=== PATIENT | male | born 1965 | race Caucasian/White ===

== ENCOUNTER 2019-05-20 19:25 | Emergency (ER) | payer MEDICAID ==
[~2019-05-20] VITALS: Ht 182.9 cm; Wt 140.0 kg
[2019-05-20 22:34] VITALS: BP 146/80
== END 2019-05-20 22:52 | disposition home or self-care (01) ==
LOC: ED 22:41
DX: R10.84 Generalized abdominal pain (principal); R11.2 Nausea with vomiting, unspecified; R05 Cough; R07.89 Other chest pain; J44.9 Chronic obstructive pulmonary disease, unspecified; G89.29 Other chronic pain; I25.10 Atherosclerotic heart disease of native coronary artery without angina pectoris; I10 Essential (primary) hypertension; E11.9 Type 2 diabetes mellitus without complications; Z90.89 Acquired absence of other organs; Z90.49 Acquired absence of other specified parts of digestive tract
CPT/HCPCS: 71045; 80053; 82962; 83690; 83880; 84484; 85025; 93005; 96374; 96375; 99284; J2405; J3490

== ENCOUNTER 2019-09-10 16:50 | Inpatient (IN) | payer MEDICAID ==
[~2019-09-10] VITALS: Ht 182.9 cm; Wt 139.0 kg
[~2019-09-10 16:50] MED LIST: METF500T17 PO
[2019-09-10] MEDS ORDERED: SODIUM CHLORIDE FLUSH 10ML SYR IVF ONE (17:30)
[2019-09-10] MEDS ORDERED: SODIUM CHLORIDE 0.9% 1,000ML IVBOLUS ONE (17:30)
[2019-09-10 17:58] LABS: MEAN CORPUSCULAR HEMOGLOBIN 31.8 pg (27.5-34.5); MEAN CORPUSCULAR HGB CONC 33.9 g/dL (33.2-36.2); MEAN CORPUSCULAR VOLUME 93.8 fL (81-97); PLATELET COUNT 243 x10^3/uL (130-400); RED BLOOD COUNT 4.88 x10^6/uL (4.38-5.82); RED CELL DISTRIBUTION WIDTH 13.5 % (9.4-14.8)
--- NOTE | 2019-09-10 18:00 | NUR ---
PT ON ALL ROOM MONITORING DEVICES, WARM BLANKET PROVIDED, CALL LIGHT WITHIN REACH. IV PLACED, LABS DRAWN W/START INCLUDING BC X 1. PT WITH MULTIPLE SX, SOME THAT ARE CHRONIC. PROD COUGH-BROWN SPUTUM, GENERALIZED EDEMA, FREQUENT URINATION. PT STATES 30 MINUTES BILLING COORDINATOR, "I JUST DON'T FEEL RIGHT, MY BLOOD SUGAR IS HIGH". SOCIAL-PT HOMELESS, LIVING IN CAR FOR "MONTHS". STATES HE RELOCATED HERE SEVERAL MONTHS AGO BUT WAS LIVING IN CAR IN [place].
[2019-09-10 18:10] LABS: ALANINE AMINOTRANSFERASE 65 U/L (12-78); ALBUMIN 3.8 g/dL (3.4-5.0); ANION GAP 5 mmol/L (5-15); CALCIUM 8.7 mg/dL (8.5-10.1); CHLORIDE 107 mmol/L (98-107); CREATININE 1.46 mg/dL (0.7-1.3)
[2019-09-10 18:14] LABS: ALKALINE PHOSPHATASE 77 U/L (45-117); BILIRUBIN,TOTAL 0.4 mg/dL (0.2-1.0); TOTAL PROTEIN 7.5 g/dL (6.4-8.2)
[2019-09-10 18:16] LABS: MD YES
[2019-09-10 18:18] LABS: BASOS#(MANUAL) 0.08 x10^3/uL (0-0.1); BASOS% (MANUAL) 1 % (0-1); EOS#(MANUAL) 0.08 x10^3/uL (0.0-0.4); EOS% (MANUAL) 1 % (1-7); LYMPH#(MANUAL) 2.37 x10^3/uL (1-3.4); LYMPHS% (MANUAL) 30 % (22-44); MONOS#(MANUAL) 0.32 x10^3/uL (0.3-2.7); MONOS% (MANUAL) 4 % (2-9); SEG#(MANUAL) 5.06 x10^3/uL (1.8-6.8); SEGS% (MANUAL) 64 % (42-75)
[2019-09-10 18:19] LABS: <PLATELET ESTIMATE> ADEQUATE; <PLT MORPHOLOGY> NORMAL PLT MORPH; <RBC MORPHOLOGY> NORMAL
[2019-09-10 18:23] LABS: TROPONIN I < 0.015 ng/mL (0.000-0.045)
[2019-09-10 18:55] LABS: ACETONE, SERUM Negative (Negative)
[2019-09-10 19:58] VITALS: BP 146/73
[2019-09-10] MEDS ORDERED: ONDANSETRON 4 MG TABLET PO PRN (21:00)
[2019-09-10] MEDS ORDERED: ENALAPRILAT 1.25 MG/ML, 2ML IV PRN (21:00)
[2019-09-10] MEDS ORDERED: DOCUSATE 100 MG CAPSULE PO PRN (21:00)
[2019-09-10] MEDS ORDERED: ALBUTEROL/IPRATROPIUM 2.5MG/0.5MG, 3 ML NPPB PRN (21:30)
[2019-09-10] MEDS: NICOTINE 14MG/24 HR PATCH.TD24 TD SCH (21:35)
[2019-09-10] MEDS: ATORVASTATIN 80 MG TABLET PO SCH (21:35)
[2019-09-10] MEDS: HEPARIN 5,000 UNITS/ML, 1ML SQ SCH (21:35)
[2019-09-10 22:30] VITALS: BP_SYST 152; BP_SYST 155; BP_DIAS 83; BP_DIAS 96
[2019-09-10 23:03] VITALS: BP 143/86
[2019-09-10 23:10] LABS: MICROSCOPIC NOT IND
[2019-09-10 23:18] LABS: CULTURE INDICATED? NO
[2019-09-10 23:21] LABS: AMPHETAMINE SCREEN, URINE Positive (Negative); BARBITURATE SCREEN, URINE Negative (Negative); BENZODIAZEPINE SCREEN, URINE Negative (Negative); CANNABINOID SCREEN, URINE Negative (Negative); COCAINE SCREEN, URINE Negative (Negative); METHADONE SCREEN, URINE Negative (Negative); OPIATE SCREEN, URINE Negative (Negative)
[2019-09-11] VITALS (11 sets, daily range): BP systolic 138–166; BP diastolic 80–103
[2019-09-11 00:55] LABS: TROPONIN I < 0.015 ng/mL (0.000-0.045)
[2019-09-11] MEDS: HEPARIN 5,000 UNITS/ML, 1ML SQ SCH ×3 (05:50→21:19)
[2019-09-11] MEDS: ASPIRIN 81 MG TABLET CHEW PO/NG SCH (08:09)
[2019-09-11 09:51] LABS: BASOPHILS # (AUTO) 0.04 x10^3/uL (0-0.1); BASOPHILS % (AUTO) 1 % (0-1); EOSINOPHILS % (AUTO) 1 % (1-7); LYMPHOCYTES % (AUTO) 29 % (22-44); MD NO; MEAN CORPUSCULAR HGB CONC 33.5 g/dL (33.2-36.2); MEAN CORPUSCULAR VOLUME 92.7 fL (81-97); MEAN PLATELET VOLUME 8.8 fL (7.4-10.4); MONOCYTES # (AUTO) 0.49 x10^3/uL (0.2-0.8); MONOCYTES % (AUTO) 6 % (2-9); NEUTROPHILS # (AUTO) 4.84 x10^3/uL (1.8-6.8); NEUTROPHILS % (AUTO) 63 % (42-75); PLATELET COUNT 216 x10^3/uL (130-400); RED BLOOD COUNT 4.86 x10^6/uL (4.38-5.82); RED CELL DISTRIBUTION WIDTH 13.4 % (9.4-14.8)
[2019-09-11 10:08] LABS: ANION GAP 9 mmol/L (5-15); CALCIUM 8.6 mg/dL (8.5-10.1); CHLORIDE 106 mmol/L (98-107)
[2019-09-11 10:13] LABS: CHOLESTEROL, TOTAL 155 mg/dL (140-239); CREATININE 1.24 mg/dL (0.7-1.3); HDL CHOL % 25 % (26-37); HDL CHOLESTEROL (DIRECT) 39 mg/dL (40-60); LDL CHOLESTEROL,CALCULATED 85 mg/dL (54-169); LDL/HDL RATIO 2.2 (0.5-3.0); TRIGLYCERIDES 157 mg/dL (50-200); TROPONIN I < 0.015 ng/mL (0.000-0.045); VLDL CHOLESTEROL 31 mg/dL (0-25)
[2019-09-11] MEDS ORDERED: OMNIPAQUE 350 MG/ML, 100ML BOTTLE ONE (12:41)
[2019-09-11] MEDS ORDERED: GLUCAGON 1 MG IM PRN (19:00)
[2019-09-11] MEDS ORDERED: DEXTROSE 50%, 50ML SYRINGE IVPush PRN (19:00)
[2019-09-11] MEDS ORDERED: DEXTROSE 4 GM TAB.CHEW PO PRN (19:00)
[2019-09-11] MEDS: ATORVASTATIN 80 MG TABLET PO SCH (21:19)
[2019-09-11] MEDS: SODIUM CHLORIDE FLUSH 10ML SYR IVF SCH (21:19)
[2019-09-11] MEDS: INSULIN LISPRO 100 UNITS/ML, PEN SQ-INSULIN SCH (21:19)
[2019-09-11] MEDS: NICOTINE 14MG/24 HR PATCH.TD24 TD SCH (21:20)
[2019-09-11] MEDS: ACETAMINOPHEN 650 MG/20.3 ML UDC PO PRN (21:25)
[2019-09-12] VITALS: BP 155/84
[2019-09-12 02:00] VITALS: BP 119/84
[2019-09-12] MEDS: HEPARIN 5,000 UNITS/ML, 1ML SQ SCH (05:52)
[2019-09-12 07:06] VITALS: BP 150/81
[2019-09-12] MEDS: ACETAMINOPHEN 650 MG/20.3 ML UDC PO PRN (08:03)
[2019-09-12] MEDS: ASPIRIN 81 MG TABLET CHEW PO/NG SCH (08:03)
[2019-09-12] MEDS: SODIUM CHLORIDE FLUSH 10ML SYR IVF SCH (09:00)
[2019-09-12] MEDS: INSULIN LISPRO 100 UNITS/ML, PEN SQ-INSULIN SCH ×2 (09:51→09:52)
== END 2019-09-12 12:33 | disposition left against medical advice (07) | DRG 469 ==
LOC: ED 18:08 → EDIP 18:25 → 4EST 19:40
PROVIDERS: ADMIT Internal Medicine; ATTEND Family Medicine
DX: N17.0 Acute kidney failure with tubular necrosis (principal); G93.41 Metabolic encephalopathy; E11.40 Type 2 diabetes mellitus with diabetic neuropathy, unspecified; I11.0 Hypertensive heart disease with heart failure; I50.32 Chronic diastolic (congestive) heart failure; E66.2 Morbid (severe) obesity with alveolar hypoventilation; J44.1 Chronic obstructive pulmonary disease with (acute) exacerbation; Z68.42 Body mass index [BMI] 45.0-49.9, adult; F15.10 Other stimulant abuse, uncomplicated; F17.210 Nicotine dependence, cigarettes, uncomplicated; R00.0 Tachycardia, unspecified; G89.29 Other chronic pain; R07.9 Chest pain, unspecified; I25.10 Atherosclerotic heart disease of native coronary artery without angina pectoris; Z53.29 Procedure and treatment not carried out because of patient's decision for other reasons; I25.2 Old myocardial infarction; Z59.0 Homelessness; Z82.49 Family history of ischemic heart disease and other diseases of the circulatory system; Z83.3 Family history of diabetes mellitus; Z95.5 Presence of coronary angioplasty implant and graft
CPT/HCPCS: 36415; 70450; 70551; 71046; 71260; 80048; 80053; 80061; 80307; 81003; 82010; 82140; 82962; 83735; 83880; 84443; 84484; 85025; 85379; 93005; 93306; 93880; G0378; J1644; Q9967; 92523-GN; J1815; J7030

== ENCOUNTER 2019-09-15 13:05 | Emergency (ER) ==
[~2019-09-15] VITALS: Ht 182.9 cm; Wt 136.0 kg
[2019-09-15 13:14] VITALS: BP 154/95
--- NOTE | 2019-09-15 13:26 | NUR ---
pt to rr. ua cup provided.
--- NOTE | 2019-09-15 13:33 | NUR ---
pt refusing to put on gown or monitoring equipment and refusing to sit in gurney. pt states, "i just gotta get my sugar down. i don't want anything else. i just gotta go get my mom. she's coming into town today." Dr. Munson to bs fro assessment at this time.
--- NOTE | 2019-09-15 13:38 | NUR ---
pt verbally aggressive toward md, rn and scribe. pt stating, "just give me a shot of insulin or i'm just gonna fucking go somewhere else and get it." pt educated that labs will be needed prior to medications and that will take at least 1 hour. pt stating that he just needs to leave to see his mom. pt leaving ama. no ama form signed.
== END 2019-09-15 13:43 | disposition left against medical advice (07) ==
LOC: ED 13:35
DX: E11.65 Type 2 diabetes mellitus with hyperglycemia (principal); E11.40 Type 2 diabetes mellitus with diabetic neuropathy, unspecified; I10 Essential (primary) hypertension; J44.9 Chronic obstructive pulmonary disease, unspecified; Z90.49 Acquired absence of other specified parts of digestive tract
CPT/HCPCS: 99281

== ENCOUNTER 2020-04-05 11:11 | Emergency (ER) | payer MEDICAID ==
[~2020-04-05] VITALS: Ht 182.9 cm; Wt 140.0 kg
[2020-04-05] MEDS ORDERED: HYDROcodone/APAP 5/325 TABLET ONE (11:39)
--- NOTE | 2020-04-05 11:50 | NUR ---
PT CAME IN CO OF LEFT KNEE WEAKNESS AND PAIN. PT DENIES TRAUMA. PT STATES HE HAS ARTHRITIS IN KNEE. PT ALSO STATES HE HAS BEEN SLEEPING IN HIS CAR AND IS CRAMPED UP. MD IS BEDSIDE FOR ASSESSMENT. PT MEDICATED PER MAR AND CONNECTED TO MONITORING EQUIPMENT.
[2020-04-05 11:52] LABS: BASOPHILS # (AUTO) 0.03 x10^3/uL (0-0.1); BASOPHILS % (AUTO) 0 % (0-1); EOSINOPHILS # (AUTO) 0.13 x10^3/uL (0-0.4); EOSINOPHILS % (AUTO) 2 % (1-7); LYMPHOCYTES # (AUTO) 2.49 x10^3/uL (1-3.4); LYMPHOCYTES % (AUTO) 38 % (22-44); MD NO; MEAN CORPUSCULAR HEMOGLOBIN 30.7 pg (27.5-34.5); MEAN CORPUSCULAR HGB CONC 33.3 g/dL (33.2-36.2); MEAN CORPUSCULAR VOLUME 92.3 fL (81-97); MONOCYTES # (AUTO) 0.45 x10^3/uL (0.2-0.8); MONOCYTES % (AUTO) 7 % (2-9); NEUTROPHILS # (AUTO) 3.53 x10^3/uL (1.8-6.8); NEUTROPHILS % (AUTO) 53 % (42-75); PLATELET COUNT 251 x10^3/uL (130-400); RED BLOOD COUNT 4.75 x10^6/uL (4.38-5.82); RED CELL DISTRIBUTION WIDTH 13.5 % (9.4-14.8)
[2020-04-05 11:59] LABS: ALBUMIN 3.7 g/dL (3.4-5.0); ANION GAP 9 mmol/L (5-15); CALCIUM 8.9 mg/dL (8.5-10.1); CHLORIDE 106 mmol/L (98-107); CREATININE 1.36 mg/dL (0.7-1.3); HCT (SEDRATE) 43.9 % (39.2-51.8)
[2020-04-05] MEDS ORDERED: HYDROcodone/APAP 5/325 TABLET PO ONE (12:00)
--- NOTE | 2020-04-05 12:45 | NUR ---
PT RESTING IN [facility]. REPORTS PAIN IMPROVEMENT
[2020-04-05] MEDS ORDERED: HYDROmorphone 1 MG/ML, 1ML INJ ONE (13:57)
[2020-04-05] MEDS ORDERED: HYDROmorphone 1 MG/ML, 1ML INJ IM ONE (14:00)
--- NOTE | 2020-04-05 14:02 | NUR ---
PT MEDICATED PER MAR
[2020-04-05 14:36] VITALS: BP 151/111
--- NOTE | 2020-04-05 14:47 | NUR ---
ASSIST RN: D/C INSTRUCTIONS, MEDS & F/U APPT'S RV'WD WITH PT, HE VERBALIZES UNDERSTANDING. RX GIVEN X1. PT AMBULATED OUT OF ED WITH KNEE IMMOBILIZER AND CRUTCHES (AND PERSONAL CANE), STATES HE WILL DRIVE HIMSELF HOME. Addendum: 04/05/20 at 1451 by ISIS ADVISED PT NOT TO DRIVE TODAY D/T RECEIVING NARCOTICS. PT STATES HE IS JUST GOING TO HIS CAR, STATES HE IS CURRENTLY LIVING IN HIS CAR. PT ALSO STATES HE WILL TAKE HIS REGULAR BP MEDICATION WHEN HE GETS TO HIS CAR.
== END 2020-04-05 14:42 | disposition home or self-care (01) ==
LOC: ED 12:33
DX: M25.562 Pain in left knee (principal); I10 Essential (primary) hypertension; E11.9 Type 2 diabetes mellitus without complications; I25.10 Atherosclerotic heart disease of native coronary artery without angina pectoris; J44.9 Chronic obstructive pulmonary disease, unspecified; G89.29 Other chronic pain; I73.9 Peripheral vascular disease, unspecified; F17.200 Nicotine dependence, unspecified, uncomplicated; Z90.49 Acquired absence of other specified parts of digestive tract
CPT/HCPCS: 29505; 36415; 73564; 80048; 82040; 85025; 85651; 96372; 99284; J1170

== ENCOUNTER 2020-05-20 23:59 | Emergency (ER) | payer MEDICAID ==
[~2020-05-20] VITALS: Ht 182.9 cm; Wt 170.0 kg
[2020-05-21 00:36] LABS: BASOPHILS # (AUTO) 0.07 x10^3/uL (0-0.1); BASOPHILS % (AUTO) 1 % (0-1); EOSINOPHILS # (AUTO) 0.09 x10^3/uL (0-0.4); EOSINOPHILS % (AUTO) 1 % (1-7); LYMPHOCYTES # (AUTO) 2.49 x10^3/uL (1-3.4); LYMPHOCYTES % (AUTO) 31 % (22-44); MD NO; MEAN CORPUSCULAR HEMOGLOBIN 30.6 pg (27.5-34.5); MEAN CORPUSCULAR HGB CONC 33.6 g/dL (33.2-36.2); MEAN CORPUSCULAR VOLUME 91.1 fL (81-97); MEAN PLATELET VOLUME 8.8 fL (7.4-10.4); MONOCYTES # (AUTO) 0.52 x10^3/uL (0.2-0.8); MONOCYTES % (AUTO) 7 % (2-9); NEUTROPHILS # (AUTO) 4.81 x10^3/uL (1.8-6.8); NEUTROPHILS % (AUTO) 60 % (42-75); PLATELET COUNT 264 x10^3/uL (130-400); RED BLOOD COUNT 4.76 x10^6/uL (4.38-5.82); RED CELL DISTRIBUTION WIDTH 13.9 % (9.4-14.8)
[2020-05-21 00:41] LABS: ALANINE AMINOTRANSFERASE 65 U/L (12-78); ALBUMIN 3.7 g/dL (3.4-5.0); ANION GAP 6 mmol/L (5-15); CALCIUM 8.8 mg/dL (8.5-10.1); CHLORIDE 103 mmol/L (98-107)
[2020-05-21 00:45] LABS: ALKALINE PHOSPHATASE 97 U/L (45-117); BILIRUBIN,TOTAL 0.5 mg/dL (0.2-1.0); TOTAL PROTEIN 7.9 g/dL (6.4-8.2); TROPONIN I < 0.015 ng/mL (0.000-0.045)
[2020-05-21] MEDS ORDERED: KETOROLAC 30 MG/1 ML IVPush ONE (01:00)
[2020-05-21] MEDS ORDERED: KETOROLAC 30 MG/1 ML ONE (01:02)
--- NOTE | 2020-05-21 01:08 | NUR ---
BREAK RN: PATIENT REQUESTED BLANKET AND LIGHTS BE DIMMED, BOTH COMPLETED. PATIENT GIVEN PAIN MEDICATION PER MAR.
[2020-05-21] MEDS ORDERED: BENZONATATE 100 MG CAPSULE PO ONE (02:00)
[2020-05-21 02:31] VITALS: BP 109/63
== END 2020-05-21 02:34 | disposition home or self-care (01) ==
LOC: ED 05-21 01:02
DX: R07.89 Other chest pain (principal); F15.20 Other stimulant dependence, uncomplicated; F17.210 Nicotine dependence, cigarettes, uncomplicated; I11.0 Hypertensive heart disease with heart failure; I50.9 Heart failure, unspecified; E11.65 Type 2 diabetes mellitus with hyperglycemia; E11.42 Type 2 diabetes mellitus with diabetic polyneuropathy; J44.9 Chronic obstructive pulmonary disease, unspecified; I25.10 Atherosclerotic heart disease of native coronary artery without angina pectoris; R00.0 Tachycardia, unspecified; E66.9 Obesity, unspecified; Z68.43 Body mass index [BMI] 50.0-59.9, adult
CPT/HCPCS: 36415; 71045; 80053; 83880; 84484; 85025; 93005; 96374; 99285; 99406; J1885

== ENCOUNTER 2020-05-27 15:02 | Emergency (ER) | payer MEDICAID ==
[~2020-05-27] VITALS: Ht 185.4 cm; Wt 147.3 kg
--- NOTE | 2020-05-27 15:13 | NUR ---
RECEIVED BEDSIDE REPORT FROM CLINICAL APPEALS RN. PER REPORT PT HAS LEFT ARM NUMBNESS AND SLIGHTLY WEAKER LEFT LEAD SUSTAINABILITY SPECIALIST. PT ALSO C/O SOB AND DIFFICULTY BREATHING. PT WAS HERE WITH A FRIEND THAT IS BEING SEEN IN ED. PT STATES "MY ARM IS NUMB. I'M HAVING A HARD TIME BREATHING. BOTH OF MY FEET ARE NUMB AND MY LEFT ARM. I DON'T KNOW WHEN IT STARTED." PT IS DIAPHORETIC. EDMD BEDSIDE. PT PLACED ON CONT PULSE OX, NIBP, BEEF LUGGER. PT STATES "IT STARTED WHILE I WAS HERE AND IT'S GETTING WORSE."
--- NOTE | 2020-05-27 15:17 | NUR ---
PT STATES "THIS ALL HAPPENED ABOUT 20 MINUTES BEFORE I BROUGHT MY FRIEND IN." PT'S "FRIEND" WAS TRIAGED AT 1324
--- NOTE | 2020-05-27 15:23 | NUR ---
PT STATES " I USED [facility] ABOUT TWO DAYS AGO."
[2020-05-27 15:30] LABS: BASOPHILS # (AUTO) 0.04 x10^3/uL (0-0.1); BASOPHILS % (AUTO) 0 % (0-1); EOSINOPHILS # (AUTO) 0.18 x10^3/uL (0-0.4); EOSINOPHILS % (AUTO) 2 % (1-7); LYMPHOCYTES # (AUTO) 2.45 x10^3/uL (1-3.4); LYMPHOCYTES % (AUTO) 26 % (22-44); MD NO; MEAN CORPUSCULAR HEMOGLOBIN 30.6 pg (27.5-34.5); MEAN CORPUSCULAR HGB CONC 33.3 g/dL (33.2-36.2); MEAN CORPUSCULAR VOLUME 91.9 fL (81-97); MEAN PLATELET VOLUME 8.9 fL (7.4-10.4); MONOCYTES # (AUTO) 0.71 x10^3/uL (0.2-0.8); MONOCYTES % (AUTO) 8 % (2-9); NEUTROPHILS # (AUTO) 6.06 x10^3/uL (1.8-6.8); NEUTROPHILS % (AUTO) 64 % (42-75); PLATELET COUNT 265 x10^3/uL (130-400); RED BLOOD COUNT 5.12 x10^6/uL (4.38-5.82); RED CELL DISTRIBUTION WIDTH 13.5 % (9.4-14.8)
--- NOTE | 2020-05-27 15:41 | NUR ---
BACK FROM CT
[2020-05-27 15:44] LABS: INTERNATIONAL NORMALIZED RATIO 1.11 (0.93-1.1); PROTHROMBIN TIME 11.4 Seconds (9.6-11.5)
--- NOTE | 2020-05-27 15:47 | NUR ---
PT STATES "NOW THAT MY RIGHT SOCK HAS BEEN OFF, I CAN FEEL MY RIGHT FOOT. IT'S NOT NUMB ANYMORE. MY LEFT ONE IS STILL."
--- NOTE | 2020-05-27 15:48 | NUR ---
PT STATES "I CAN FEEL MY LEFT FINGERS NOW. I HAD WATER ON MY LUNGS THE LAST TIME I WAS HERE. IF WE TAKE OFF MY LEFT SOCK, MAYBE I CAN FEEL MY FEET ALSO." REMOVED LEFT SOCK PER PT REQUEST.
[2020-05-27 15:53] LABS: TROPONIN I < 0.015 ng/mL (0.000-0.045)
[2020-05-27] MEDS ORDERED: OMNIPAQUE 350 MG/ML, 100ML BOTTLE ONE (15:57)
--- NOTE | 2020-05-27 16:02 | NUR ---
PT STATES "I CAN FEEL MY LEFT FOOT NOW. THE SOCKS MUST HAVE BEEN CUTTING OFF MY CIRCULATION. I CAN FEEL MY LEFT HAND TOO." PT IS NOT DIAPHORETIC AT THIS TIME.
--- NOTE | 2020-05-27 16:06 | NUR ---
PT STATES HIS BREATHING FEELS BETTER. PT ASSIGNMENT OFFICER EQUAL BILATERALLY. NEURO ON TELE NOW
--- NOTE | 2020-05-27 16:37 | NUR ---
PT TRANSFERRED TO ROOM 15 PT TRANSFERRED WITH ALL PERSONAL BELONGINGS.
--- NOTE | 2020-05-27 16:41 | NUR ---
BEDSIDE REPORT TO YANELY ESPITIA. ALL QUESTIONS ANSWERED
--- NOTE | 2020-05-27 16:42 | NUR ---
REPORT FROM JEAN PAUL
[2020-05-27 16:44] LABS: AMPHETAMINE SCREEN, URINE Positive (Negative); BARBITURATE SCREEN, URINE Negative (Negative); BENZODIAZEPINE SCREEN, URINE Negative (Negative); CANNABINOID SCREEN, URINE Negative (Negative); COCAINE SCREEN, URINE Negative (Negative); METHADONE SCREEN, URINE Negative (Negative); OPIATE SCREEN, URINE Negative (Negative)
[2020-05-27] MEDS ORDERED: ENALAPRILAT 1.25 MG/ML, 1ML ONE (17:22)
[2020-05-27] MEDS ORDERED: LABETALOL 5MG/ML, 20ML ONE (17:22)
--- NOTE | 2020-05-27 17:28 | NUR ---
MEDICATED FOR BLOOD PRESSURE. POC TO DC SOON
[2020-05-27] MEDS ORDERED: LABETALOL 5MG/ML, 20ML IVPush ONE (17:30)
[2020-05-27] MEDS ORDERED: ENALAPRILAT 1.25 MG/ML, 2ML IV ONE (17:30)
[2020-05-27 17:55] VITALS: BP 134/74
--- NOTE | 2020-05-27 18:15 | NUR ---
Patient/Caregiver given discharge instructions and they have confirmed that they understand the instructions. Patient ambulatory with steady gait.
== END 2020-05-27 18:20 | disposition home or self-care (01) ==
LOC: ED 16:03
DX: I11.9 Hypertensive heart disease without heart failure (principal); F15.10 Other stimulant abuse, uncomplicated; I65.22 Occlusion and stenosis of left carotid artery; R00.0 Tachycardia, unspecified; R94.31 Abnormal electrocardiogram [ECG] [EKG]; E11.9 Type 2 diabetes mellitus without complications; J44.9 Chronic obstructive pulmonary disease, unspecified; I25.10 Atherosclerotic heart disease of native coronary artery without angina pectoris; F17.200 Nicotine dependence, unspecified, uncomplicated; Z90.49 Acquired absence of other specified parts of digestive tract
CPT/HCPCS: 70450; 70496; 70498; 71045; 80047; 80307; 84484; 85025; 85610; 85730; 93005; 96374; 96375; 99285; Q9967; 99291

== ENCOUNTER 2020-08-13 09:35 | Emergency (ER) | payer MEDICAID ==
[~2020-08-13] VITALS: Ht 182.9 cm; Wt 134.3 kg
[2020-08-13 09:39] VITALS: BP 167/99
--- NOTE | 2020-08-13 10:15 | NUR ---
PT HERE FOR R EYE PAIN "IT FEELS LIKE THERE IS SAND IN MY EYE" STARTED THIS AM. GROSS NEURO INTACT. ERMD IN TO EVAL PT, PT TO BE DISCHARGED.
== END 2020-08-13 10:47 | disposition home or self-care (01) ==
LOC: ED 09:54
DX: H10.021 Other mucopurulent conjunctivitis, right eye (principal); F17.200 Nicotine dependence, unspecified, uncomplicated
CPT/HCPCS: 99283

== ENCOUNTER 2020-08-16 22:59 | Emergency (ER) | payer MEDICAID ==
[~2020-08-16] VITALS: Ht 182.9 cm; Wt 138.2 kg
--- NOTE | 2020-08-16 23:10 | NUR ---
CHEMICAL ENGRAVER: VAs DONE.
--- NOTE | 2020-08-17 | NUR ---
pt to room from lobby
--- NOTE | 2020-08-17 00:11 | NUR ---
PT AMBULATED TO ROOM WITHOUT ASSISTANCE, PT C/O SWOLLEN RIGHT EYE WITH PAIN FOR THE LAST COUPLE DAYS. PT RESTING IN BED, WITH CALL LIGHT WITHIN REACH
[2020-08-17] MEDS ORDERED: FLUORESCEIN OPHTHALMIC 1 MG STRIP RIGHTEYE ONE (00:30)
[2020-08-17] MEDS ORDERED: PROPARACAINE OPHTH 0.5%, 15ML RIGHTEYE ONE (00:30)
--- NOTE | 2020-08-17 00:39 | NUR ---
REPORT FROM YANELY DANIELS TO ASSUME CARE OF PT.
[2020-08-17] MEDS ORDERED: FLUORESCEIN OPHTHALMIC 1 MG STRIP ONE (00:56)
[2020-08-17] MEDS ORDERED: PROPARACAINE OPHTH 0.5%, 15ML ONE (00:56)
[2020-08-17] MEDS ORDERED: CEFDINIR 300 MG CAPSULE PO ONE (01:30)
[2020-08-17] MEDS ORDERED: CEFDINIR 300 MG CAPSULE ONE (01:56)
[2020-08-17 02:07] VITALS: BP 151/99
== END 2020-08-17 02:09 | disposition home or self-care (01) ==
LOC: ED 08-17 00:20
DX: H10.021 Other mucopurulent conjunctivitis, right eye (principal); L03.213 Periorbital cellulitis; R51.9 Headache, unspecified; I25.2 Old myocardial infarction; I10 Essential (primary) hypertension; J44.9 Chronic obstructive pulmonary disease, unspecified; E11.9 Type 2 diabetes mellitus without complications; F17.210 Nicotine dependence, cigarettes, uncomplicated; Z90.89 Acquired absence of other organs; Z90.49 Acquired absence of other specified parts of digestive tract
CPT/HCPCS: 99283; 99406

== ENCOUNTER 2020-08-17 21:20 | Emergency (ER) | payer MEDICAID ==
[~2020-08-17] VITALS: Ht 177.8 cm; Wt 136.7 kg
[2020-08-17] MEDS ORDERED: PROPARACAINE OPHTH 0.5%, 15ML EACHEYE ONE (22:00)
[2020-08-17] MEDS ORDERED: FLUORESCEIN OPHTHALMIC 1 MG STRIP EACHEYE ONE (22:00)
[2020-08-17] MEDS ORDERED: PROPARACAINE OPHTH 0.5%, 15ML ONE (23:00)
[2020-08-17] MEDS ORDERED: FLUORESCEIN OPHTHALMIC 1 MG STRIP ONE (23:00)
[2020-08-17] MEDS ORDERED: ERYTHROMYCIN OPHTH 0.5%, 1GM EACHEYE ONE (23:30)
[2020-08-17 23:58] VITALS: BP 130/66
== END 2020-08-18 | disposition home or self-care (01) ==
LOC: ED 22:58
DX: H10.023 Other mucopurulent conjunctivitis, bilateral (principal); F17.210 Nicotine dependence, cigarettes, uncomplicated; E11.65 Type 2 diabetes mellitus with hyperglycemia; I10 Essential (primary) hypertension; Z90.89 Acquired absence of other organs; Z90.49 Acquired absence of other specified parts of digestive tract
CPT/HCPCS: 99284; 99406

== ENCOUNTER 2020-08-19 13:08 | Emergency (ER) | payer MEDICAID ==
[~2020-08-19] VITALS: Ht 182.9 cm; Wt 127.0 kg
[2020-08-19 13:34] VITALS: BP 158/100
--- NOTE | 2020-08-19 17:22 | NUR ---
NO ANSWER FROM LOBBY X 1
--- NOTE | 2020-08-19 17:43 | NUR ---
NO ANSWER X2, 3
== END 2020-08-19 17:49 | disposition left against medical advice (07) ==
LOC: ED 17:30
DX: H57.12 Ocular pain, left eye (principal)
CPT/HCPCS: 99283

== ENCOUNTER 2020-08-20 10:50 | Emergency (ER) | payer MEDICAID ==
[~2020-08-20] VITALS: Ht 185.4 cm; Wt 133.1 kg
--- NOTE | 2020-08-20 11:17 | NUR ---
Dr. Ellis at bedside to evaluate pt. Pt reports bilat eye swelling/pain x6 days. Pt reports he was seen here 4 days ago and given ointment and eye drops. Pt reports with rx use swelling and pain in bilat eyes has increased. Pt's eyelids swollen, erethematous. Pt unable to open his eyes.
[2020-08-20] MEDS ORDERED: FLUORESCEIN OPHTHALMIC 1 MG STRIP ONE (11:20)
[2020-08-20 12:03] VITALS: BP 157/98
--- NOTE | 2020-08-20 12:07 | NUR ---
ANA RN ASSISTING PRIMARY RN'S SHAE. PT GIVEN DISCARGE INSTURCTIONS, VERBALIZED UNDERSTANDING, HANDOUTS IN HAND. AMBULATED TO CHECKOUT DESK WITH STEADY GAIT. [facility] CALLED AND ON WAY TO TRANSPORT PT TO DR. LOZANO'S (CLARIFICATION OPERATOR) OFFICE DISCUSSED WITH PT BY DR. ORTIZ, PT VERBALIZED UNDERSTANDING THAT [facility] VOUCHER WAS ONE WAY TO DOCTOR OFFICE AND HE WOULD NEED TO MAKE HIS OWN ARRANGEMENTS TO COME GENETIC SUPERVISOR HIS VEHICLE FROM ER. PT VERBALIZED UNDERSTANDING. VERIFIED VISUAL ACUITY ORDER WITH DR. ORTIZ, "UNABLE TO COMPLETE WITH THE PT, DOES NOT NEED TO BE DONE, HE IS READY FOR DISCHARGE VIA TAXI TO DR. LOZANO."
== END 2020-08-20 12:12 | disposition home or self-care (01) ==
LOC: ED 11:52
DX: H10.33 Unspecified acute conjunctivitis, bilateral (principal); E11.9 Type 2 diabetes mellitus without complications; I25.10 Atherosclerotic heart disease of native coronary artery without angina pectoris; J44.9 Chronic obstructive pulmonary disease, unspecified; Z90.49 Acquired absence of other specified parts of digestive tract
CPT/HCPCS: 99281; 99282

== ENCOUNTER 2020-12-01 09:34 | Emergency (ER) | payer MEDICAID ==
[~2020-12-01] VITALS: Ht 182.9 cm; Wt 135.6 kg
--- NOTE | 2020-12-01 10:05 | NUR ---
pt comes in today complaining of eye pain, redness, and swelling with yellow discharge for 2 days. He was seen in August for the same thing and saw a specialist. He is also complaining of a growth on his tongue on the right side which appears to be slightly larger than a pea size. call light within reach, continuous sp02 and cycling vitals in place.
--- NOTE | 2020-12-01 10:08 | NUR ---
pt also states he stopped taking all his daily medications including meds for diabetes and COPD about a year ago because he was "tired of taking medicines."
[2020-12-01] MEDS ORDERED: FLUORESCEIN OPHTHALMIC 1 MG STRIP ONE ×2 (11:06→11:49)
[2020-12-01] MEDS ORDERED: PROPARACAINE OPHTH 0.5%, 15ML ONE (11:07)
[2020-12-01] MEDS ORDERED: KETOROLAC 30 MG/1 ML ONE (11:13)
[2020-12-01] MEDS ORDERED: KETOROLAC 30 MG/1 ML IM ONE (11:30)
[2020-12-01] MEDS ORDERED: PROPARACAINE OPHTH 0.5%, 15ML EACHEYE ONE (11:30)
[2020-12-01] MEDS ORDERED: FLUORESCEIN OPHTHALMIC 1 MG STRIP EACHEYE ONE (11:30)
[2020-12-01 12:46] VITALS: BP 150/89
--- NOTE | 2020-12-01 12:46 | NUR ---
BREAK RN: PT COMFORTABLY SLEEPING ON GURNEY, NAD, NO NEEDS AT THIS TIME, CALL LIGHT WITHIN REACH.
--- NOTE | 2020-12-01 13:11 | NUR ---
Patient given ROBIN wrap/discharge instructions and Rx, they have confirmed that they understand the instructions. Patient ambulatory with steady gait.
== END 2020-12-01 13:12 | disposition home or self-care (01) ==
LOC: ED 12:50
DX: H10.023 Other mucopurulent conjunctivitis, bilateral (principal); M12.562 Traumatic arthropathy, left knee; E11.65 Type 2 diabetes mellitus with hyperglycemia; I25.10 Atherosclerotic heart disease of native coronary artery without angina pectoris; J44.9 Chronic obstructive pulmonary disease, unspecified; I10 Essential (primary) hypertension; Z90.49 Acquired absence of other specified parts of digestive tract; Z90.89 Acquired absence of other organs
CPT/HCPCS: 73564; 96372; 99283; J1885

== ENCOUNTER 2021-03-22 03:39 | Emergency (ER) | payer MEDICAID ==
[~2021-03-22] VITALS: Ht 182.9 cm; Wt 126.0 kg
--- NOTE | 2021-03-22 04:07 | NUR ---
PT ARRIVED TO ER WITH RIGHT HIP PAIN, PT STATED HE DID NOT FALL, PT ALSO STATED THAT HE SLEEPS IN HIS CAR AND THINKS IT MIGHT BE FROM THAT, ALL NEEDS IN REACH, CALL LIGHT IN REACH, NAD, PT WAS WATCHING SOME VIDEO ON HIS PHONE WHILE THIS RN WAS TALKING TO HIM
[2021-03-22] MEDS ORDERED: METHOCARBAMOL 750 MG TABLET ONE (04:10)
[2021-03-22] MEDS ORDERED: KETOROLAC 60 MG/2 ML ONE (04:11)
[2021-03-22] MEDS ORDERED: KETOROLAC 30 MG/1 ML IM ONE (04:30)
[2021-03-22] MEDS ORDERED: METHOCARBAMOL 750 MG TABLET PO ONE (04:30)
--- NOTE | 2021-03-22 05:23 | NUR ---
PT GIVEN A CANE TO ASSIST HIM IN MOVING, PT GETTING DRESSED FOR D/C
--- NOTE | 2021-03-22 05:28 | NUR ---
PT ABLE TO AMBULATE WITH CANE, SCRIPTS GIVEN TO PT
[2021-03-22 05:29] VITALS: BP 152/100
== END 2021-03-22 05:32 | disposition home or self-care (01) ==
LOC: ED 04:06
DX: M25.551 Pain in right hip (principal); I11.0 Hypertensive heart disease with heart failure; I50.9 Heart failure, unspecified; J44.9 Chronic obstructive pulmonary disease, unspecified; E11.9 Type 2 diabetes mellitus without complications; I25.10 Atherosclerotic heart disease of native coronary artery without angina pectoris; M19.90 Unspecified osteoarthritis, unspecified site; F17.200 Nicotine dependence, unspecified, uncomplicated; Z90.49 Acquired absence of other specified parts of digestive tract
CPT/HCPCS: 73502; 96372; 99283; J1885

== ENCOUNTER 2021-04-12 01:44 | Emergency (ER) | payer MEDICAID ==
[~2021-04-12] VITALS: Ht 182.9 cm; Wt 137.4 kg
[2021-04-12 02:11] VITALS: BP 164/98
== END 2021-04-12 02:13 | disposition home or self-care (01) ==
LOC: ED 01:50
DX: K02.9 Dental caries, unspecified (principal); E11.65 Type 2 diabetes mellitus with hyperglycemia; I50.9 Heart failure, unspecified; I25.10 Atherosclerotic heart disease of native coronary artery without angina pectoris; J44.9 Chronic obstructive pulmonary disease, unspecified; E66.01 Morbid (severe) obesity due to excess calories; Z90.89 Acquired absence of other organs; Z90.49 Acquired absence of other specified parts of digestive tract; Z88.0 Allergy status to penicillin; Z68.41 Body mass index [BMI] 40.0-44.9, adult
CPT/HCPCS: 99283

== ENCOUNTER 2021-06-09 16:32 | Emergency (ER) | payer MEDICAID, OTHER ==
[~2021-06-09] VITALS: Ht 182.9 cm; Wt 135.0 kg
[2021-06-09] MEDS ORDERED: KETOROLAC 30 MG/1 ML ONE (17:11)
[2021-06-09] MEDS ORDERED: ACETAMINOPHEN 325 MG TABLET ONE (17:11)
--- NOTE | 2021-06-09 17:17 | NUR ---
PT MEDICATED PER ERP ORDER FOR R ARM, NECK, AND L LEG PAIN. AWAITING IMAGING. BP CUFF, PULSE OX IN PLACE. CALL LIGHT WITHIN REACH.
[2021-06-09] MEDS ORDERED: KETOROLAC 30 MG/1 ML IM ONE (18:00)
[2021-06-09] MEDS ORDERED: ACETAMINOPHEN 325 MG TABLET PO ONE (18:00)
[2021-06-09 18:15] VITALS: BP 132/77
--- NOTE | 2021-06-09 18:55 | NUR ---
AWAITING XR READ.
== END 2021-06-09 20:31 | disposition home or self-care (01) ==
LOC: ED 17:02
DX: S16.1XXA Strain of muscle, fascia and tendon at neck level, initial encounter (principal); S73.102A Unspecified sprain of left hip, initial encounter; S43.401A Unspecified sprain of right shoulder joint, initial encounter; I11.0 Hypertensive heart disease with heart failure; I50.9 Heart failure, unspecified; J44.9 Chronic obstructive pulmonary disease, unspecified; E11.65 Type 2 diabetes mellitus with hyperglycemia; I25.10 Atherosclerotic heart disease of native coronary artery without angina pectoris; V43.03XA Car driver injured in collision with pick-up truck in nontraffic accident, initial encounter; Y93.89 Activity, other specified; Y92.410 Unspecified street and highway as the place of occurrence of the external cause; Y99.8 Other external cause status
CPT/HCPCS: 72125; 73030; 73552; 96372; 99284; J1885

== ENCOUNTER 2021-06-25 23:33 | Inpatient (IN) | payer MEDICAID, OTHER ==
[~2021-06-25] VITALS: Ht 182.9 cm; Wt 138.0 kg
[2021-06-25] MEDS ORDERED: ACETAMINOPHEN 500 MG TABLET PO ONE (23:45)
--- NOTE | 2021-06-25 23:55 | NUR ---
PATIENT SP02 RAPIDLY DECLINING TO 40'S %. IMMEDIATELY PLACED ON 15L NON REBREATHER AND INCREASED 68%. PATIENT BROUGHT TO TRAUMA ROOM 3 RIGHT AFTER AND INTUBATED AT 0000
[2021-06-26] LABS: BASOPHILS % (AUTO) 1 % (0-1); EOSINOPHILS % (AUTO) 1 % (1-7); LYMPHOCYTES % (AUTO) 20 % (22-44); MEAN CORPUSCULAR HEMOGLOBIN 32.2 pg (27.5-34.5); MEAN CORPUSCULAR HGB CONC 35.1 g/dL (33.2-36.2); MEAN PLATELET VOLUME 8.8 fL (7.4-10.4); MONOCYTES % (AUTO) 7 % (2-9); NEUTROPHILS % (AUTO) 72 % (42-75); PLATELET COUNT 197 x10^3/uL (130-400); RED BLOOD COUNT 4.55 x10^6/uL (4.38-5.82); RED CELL DISTRIBUTION WIDTH 13.2 % (9.4-14.8)
[2021-06-26] MEDS ORDERED: ROCURONIUM 10 MG/ML,10ML IVPush ONE
[2021-06-26] MEDS ORDERED: ETOMIDATE 20 MG/10 ML IVPush ONE
[2021-06-26] MEDS ORDERED: ACETAMINOPHEN 325 MG TABLET PO ONE
--- NOTE | 2021-06-26 | NUR ---
8.0 TUBE, 22T, Addendum: 06/26/21 at 0010 by [email or web address] RATE 20, PEEP 10, FI02 100%
[2021-06-26] MEDS ORDERED: NITROGLYCERIN/D5W PMX 250 ML ONE (00:07)
[2021-06-26] MEDS: PROPOFOL 100 ML IV PRN ×2 (00:10→07:54)
--- NOTE | 2021-06-26 00:10 | NUR ---
ASSUMED CARE OF PATIENT. PATIENT INTUBATED, VITAL SIGNS NOT STABLE AT THIS TIME.
--- NOTE | 2021-06-26 00:10 | NUR ---
REPORT GIVEN TO TANA NY
[2021-06-26 00:11] LABS: ALANINE AMINOTRANSFERASE 78 U/L (12-78); ALBUMIN 3.3 g/dL (3.4-5.0); ANION GAP 6 mmol/L (5-15); CALCIUM 8.3 mg/dL (8.5-10.1); CHLORIDE 100 mmol/L (98-107)
[2021-06-26 00:15] LABS: ALKALINE PHOSPHATASE 81 U/L (45-117); TOTAL PROTEIN 7.2 g/dL (6.4-8.2); TROPONIN I < 0.015 ng/mL (0.000-0.045)
--- NOTE | 2021-06-26 00:30 | NUR ---
PATIENT DIFFICULT TO ACHIEVE ADEQUATE SEDATION. SEE TITRATION DRIP FOR FURTHER INFORMATION. VITAL SIGNS ARE IMPROVING. HAVING COMPLICATIONS WITH PULSE OX IN ROOM, MONITOR AND CABLES CHANGED.
[2021-06-26] MEDS ORDERED: FENTANYL PF 100 MCG/2ML ONE (00:42)
--- NOTE | 2021-06-26 00:50 | NUR ---
BC X 2 DRAWN PRIOR TO ANTIBIOTIC THERAPY INTIATION
[2021-06-26] MEDS ORDERED: CEFTRIAXONE 1,000 MG in DEXTROSE 5% 50 ML IVPB ONE (01:00)
[2021-06-26] MEDS ORDERED: AZITHROMYCIN 500 MG in SODIUM CHLORIDE 0.9% 250 ML IV ONE (01:00)
[2021-06-26] MEDS ORDERED: OMNIPAQUE 350 MG/ML, 100ML BOTTLE ONE (01:00)
[2021-06-26 01:02] LABS: CARBOXYHEMOGLOBIN 2.4 % (0.0-1.5); METHEMOGLOBIN 0.3 % (0.0-1.4)
[2021-06-26] MEDS ORDERED: ONDANSETRON 2MG/ML, 2ML ONE (01:06)
[2021-06-26] MEDS ORDERED: ONDANSETRON 2MG/ML, 2ML IVPush PRN (01:30)
[2021-06-26] MEDS ORDERED: morphine SULFATE 10 MG/ML, 1ML IVPush PRN (01:30)
[2021-06-26] MEDS ORDERED: BISACODYL 10 MG SUPP PR PRN (01:30)
[2021-06-26] MEDS ORDERED: ENOXAPARIN 40 MG/0.4 ML SQ SCH (01:30)
[2021-06-26] MEDS ORDERED: LABETALOL 5MG/ML, 20ML IVPush PRN (01:30)
--- NOTE | 2021-06-26 01:35 | NUR ---
PATIENT TAKEN TO CT WITH RESP AND RN. PT TOLERATED WELL. VSS.
[2021-06-26 01:54] LABS: TROPONIN I < 0.015 ng/mL (0.000-0.045)
--- NOTE | 2021-06-26 02:00 | NUR ---
PATIENT RETURNED FROM CT. TOLERATED WELL. PATIENT PLACED ON ICU BED, PATIENT WILL BE HELD IN ER DUE TO LACK OF ROOMS UPSTAIRS.
[2021-06-26] MEDS ORDERED: PROPOFOL 100 ML IV ONE ×3 (02:09→07:40)
--- NOTE | 2021-06-26 02:30 | NUR ---
TOLERATING INTERVENTIONS WELL. VSS. NO NOTED NEEDS AT THIS TIME. SEDATION IS ADEQUATE FOR PATIENT AT THIS TIME. BED IN LOWEST LOCKED POSITION, SIDE RAILS UP, CALL LIGHT WITHIN REACH. WILL CONITNUE TO MONITOR.
[2021-06-26] MEDS ORDERED: ENOXAPARIN 40 MG/0.4 ML ONE ×2 (02:40→21:07)
[2021-06-26] MEDS ORDERED: LABETALOL 5MG/ML, 20ML ONE (03:02)
--- NOTE | 2021-06-26 06:10 | NUR ---
AM LABS DRAWN AND SENT TO LAB.
[2021-06-26] MEDS ORDERED: ALBUTEROL/IPRATROPIUM 2.5MG/0.5MG, 3 ML HHN SCH (06:30)
--- NOTE | 2021-06-26 06:32 | NUR ---
URINE DRAINED. 540ML OF YELLOW CLOUDY URINE.
--- NOTE | 2021-06-26 06:32 | NUR ---
HUMALOG PEN ORDERED FROM PHARMACY FOR SLIDING SCALE FOR INSULIN
--- NOTE | 2021-06-26 06:43 | NUR ---
REPORT GIVEN TO YANELY DURAN
[2021-06-26] MEDS ORDERED: INSULIN LISPRO SINGLE DOSE, ER SQ-INSULIN ONE ×2 (06:45→10:58)
[2021-06-26] MEDS: INSULIN LISPRO 100 UNITS/ML, PEN SQ-INSULIN SCH ×4 (06:46→21:14)
[2021-06-26 06:56] LABS: MICROSCOPIC INDICATED
--- NOTE | 2021-06-26 06:57 | NUR ---
SBAR RPT REC'D AND ASSUMED PT CARE. ASSESSMENT NOTED. PROPOFOL GTT INFUSING AT 50MCG/KG/MIN. PT TOLLERATING WELL AND APPEARS COMFORTABLE. VENT SETTINGS AC20/550/70/10 PIP = 26-27
[2021-06-26 06:59] LABS: ANION GAP 8 mmol/L (5-15); CALCIUM 8.1 mg/dL (8.5-10.1); CHLORIDE 101 mmol/L (98-107); CREATININE 1.22 mg/dL (0.7-1.3)
[2021-06-26 07:00] LABS: C-REACTIVE PROTEIN, QUANT 1.7 mg/dL (0.02-0.49)
[2021-06-26 07:06] LABS: AMPHETAMINE SCREEN, URINE Positive (Negative); BARBITURATE SCREEN, URINE Negative (Negative); BENZODIAZEPINE SCREEN, URINE Negative (Negative); CANNABINOID SCREEN, URINE Negative (Negative); COCAINE SCREEN, URINE Negative (Negative); METHADONE SCREEN, URINE Negative (Negative); OPIATE SCREEN, URINE Negative (Negative)
--- NOTE | 2021-06-26 07:56 | NUR ---
ORAL CARE COMPLETED, PT REPOSITIONED TO LEFT LATERAL.
--- NOTE | 2021-06-26 07:57 | NUR ---
LATE ENTRY 0745, DR ESCALANTE AT BEDSIDE, PT ASSESSMENT, POC DISUSSED AND QUESTIONS ANSWERED.
[2021-06-26] MEDS ORDERED: FAMOTIDINE 20 MG/2 ML ONE ×2 (09:03→21:08)
[2021-06-26] MEDS: FAMOTIDINE 20 MG/2 ML IVPush SCH ×2 (09:04→21:15)
--- NOTE | 2021-06-26 09:54 | NUR ---
LATE ENTRY 904, CRITICAL CARE TEAM, DR ESCALANTE AND PULMONARY AT BEDSIDE. PLAN FOR VENT WEANING AND EXTUBATION DISCUSSED.
--- NOTE | 2021-06-26 09:54 | NUR ---
RT AT BEDSIDE, FI02 DECREASED TO 40% AND PEEP TO 5. PROPOFOL OFF.
--- NOTE | 2021-06-26 10:13 | NUR ---
PT AWAKE AND FOLLOWS COMMANDS APPROPRIOTELY. VC 1360 NIF -5. DR ESCALANTE INFORMED, SHE WILL CONSULT WITH DR CROUCH.
--- NOTE | 2021-06-26 10:17 | NUR ---
VERBAL PHONE ORDER FROM DR ESCALANTE TO EXTUBATE. PT EXTUBATED BY RT W/O DIFFICULTY, OGT PULLED WITH ETT. 02 4L NC PLACED. PT TOLLERATED WELL. RESTRAINTS REMOVED.
[2021-06-26 10:22] LABS: TROPONIN I < 0.015 ng/mL (0.000-0.045)
[2021-06-26] MEDS ORDERED: ACETAMINOPHEN 325 MG TABLET ONE ×2 (10:58→15:27)
[2021-06-26] MEDS: ACETAMINOPHEN 325 MG TABLET PO PRN ×2 (11:04→15:43)
--- NOTE | 2021-06-26 11:04 | NUR ---
PT C/O FEELING COLD, ONLY SHEET PROVIDED 2/2 TEMP. PT MED WITH TYLENOL FOR GEN DISCOMFORT. TOLLERATING SIPS OF WATER.
[2021-06-26] MEDS ORDERED: ROCURONIUM 10MG/ML,5ML ONE (11:11)
[2021-06-26] MEDS ORDERED: PROPOFOL 10 MG/ML, 100ML IV ONE (11:11)
[2021-06-26] MEDS ORDERED: ETOMIDATE 20 MG/10 ML ONE (11:11)
--- NOTE | 2021-06-26 12:19 | NUR ---
PT MOVED TO TRAUMA 2 AND SBAR RPT TO YANELY AUGUSTINE.
--- NOTE | 2021-06-26 12:29 | NUR ---
RECEIVED REPORT FROM ROGER NY. ASSUMING CARE AT THIS TIME. PT RESTING ON HOSPITAL BED, RESP EVEN AND UNLABORED. PT CONNECTED TO ALL MONITORING. PT CLOSE TO NURSES STATION, CALL LIGHT IN REACH.
--- NOTE | 2021-06-26 13:38 | NUR ---
PT AWAKENED FOR A MINUTE TO ASK FOR WATER. PT PROVIDED SIPS OF WATER. PT WENT BACK TO SLEEP. RESP EVEN AND UNLABORED.
--- NOTE | 2021-06-26 15:43 | NUR ---
TYLENOL GIVEN PER DEC FOR FEVER. PT TOLERATED PILLS WELL.
[2021-06-26] MEDS: MEROPENEM 1 GM in SODIUM CHLORIDE 0.9% 100 ML IV SCH ×2 (16:20→23:34)
--- NOTE | 2021-06-26 16:26 | NUR ---
PT AWAKE AND TALKING TO MOTHER ON PHONE.
[2021-06-26] MEDS: ENOXAPARIN 40 MG/0.4 ML SQ SCH (18:00)
--- NOTE | 2021-06-26 18:40 | NUR ---
PT ATE ABOUT 75% DINNER. PT NOW SLEEPING ON HOSPITAL BED, RESP EVEN AND UNLABORED.
--- NOTE | 2021-06-26 18:58 | NUR ---
BEDSIDE REPORT GIVEN TO LILI NY. TRANSFER OF CARE.
--- NOTE | 2021-06-26 19:15 | NUR ---
PT RESTING IN BED WITH LIGHTS OFF. NADN. PT AROUSED AND SPEECH NORMAL AND HELD A CONVERSATION. NO COMPLAINTS AT THIS TIME. WILL CONTINUE TO MONITOR WHILE WAITING FOR ADMISSION BED. VSS.
--- NOTE | 2021-06-26 20:37 | NUR ---
PT SLEEPING. VSS. NO CHANGE IN PT STATUS.
[2021-06-26] MEDS ORDERED: MELATONIN 5 MG TABLET NG SCH (21:00)
[2021-06-26] MEDS ORDERED: MELATONIN 5 MG TABLET ONE (21:07)
[2021-06-26] MEDS: LOSARTAN 25MG TABLET PO SCH (21:15)
--- NOTE | 2021-06-26 23:51 | NUR ---
PT SLEEPING. VSS. NO CHANGE IN PT STATUS.
--- NOTE | 2021-06-27 03:47 | NUR ---
PT SLEEPING. VSS. NO CHANGE IN PT STATUS.
--- NOTE | 2021-06-27 06:11 | NUR ---
PT SLEEPING. VSS. NO CHANGE IN PT STATUS.
[2021-06-27 06:27] LABS: BASOPHILS % (AUTO) 1 % (0-1); EOSINOPHILS % (AUTO) 1 % (1-7); LYMPHOCYTES % (AUTO) 30 % (22-44); MEAN CORPUSCULAR HGB CONC 34.4 g/dL (33.2-36.2); MEAN PLATELET VOLUME 9.1 fL (7.4-10.4); MONOCYTES % (AUTO) 7 % (2-9); NEUTROPHILS % (AUTO) 61 % (42-75); PLATELET COUNT 168 x10^3/uL (130-400); RED BLOOD COUNT 4.71 x10^6/uL (4.38-5.82); RED CELL DISTRIBUTION WIDTH 13.3 % (9.4-14.8)
[2021-06-27 06:32] LABS: ANION GAP 5 mmol/L (5-15); CALCIUM 8.3 mg/dL (8.5-10.1); CHLORIDE 103 mmol/L (98-107)
--- NOTE | 2021-06-27 07:00 | NUR ---
CARE TRANSFERED. REPORT GIVEN TO YANELY ESPITIA
--- NOTE | 2021-06-27 07:03 | NUR ---
REPORT FORM LILI, BEDSIDE. PT RESTING.
[2021-06-27] MEDS ORDERED: ENOXAPARIN 40 MG/0.4 ML ONE (07:13)
[2021-06-27] MEDS: MEROPENEM 1 GM in SODIUM CHLORIDE 0.9% 100 ML IV SCH ×2 (07:20→15:08)
[2021-06-27] MEDS: ENOXAPARIN 40 MG/0.4 ML SQ SCH ×2 (07:20→17:45)
[2021-06-27] MEDS: INSULIN LISPRO 100 UNITS/ML, PEN SQ-INSULIN SCH ×3 (07:25→17:45)
--- NOTE | 2021-06-27 07:54 | NUR ---
MEDICATED PER ORDERS, PT IN BED TALKING, STATING HE HAS ESOPHOGEAL PAIN, WANTS ORANGE JUICE AND HUNGRY. FINGERSTICK 203, ABX INFUSING,
--- NOTE | 2021-06-27 08:52 | NUR ---
PT CO CHEST PAIN, SEEN BY MD ELLIS.
--- NOTE | 2021-06-27 08:53 | NUR ---
EKG COMPLETED. NO ST ABNORMALITIES. TROP ORDERED
[2021-06-27] MEDS: LOSARTAN 25MG TABLET PO SCH (09:00)
[2021-06-27 09:32] LABS: TROPONIN I < 0.015 ng/mL (0.000-0.045)
--- NOTE | 2021-06-27 09:54 | NUR ---
TROP NEGATIVE. OK TO GIVE MEAL TRAY. PT EATING, NO S/S DYSPHAGIA
--- NOTE | 2021-06-27 10:44 | NUR ---
PUGH REMOVED. 1900 ML KIM URINE EMPTIED
--- NOTE | 2021-06-27 11:23 | NUR ---
Note veronica in EDM - 06/27/21 at 1125 by BENIGNO DENISSE ESCALANTE. OK TO STOP NICARDIPINE GTT AND REASSES. OK TO USE ORAL BP MEDS. OK TO BE DOWNGRADED AND WILL UPDATE MD Khan MONITORED BP
[2021-06-27] MEDS ORDERED: FAMOTIDINE 20 MG/2 ML ONE (12:01)
[2021-06-27] MEDS: FAMOTIDINE 20 MG/2 ML IVPush SCH (12:05)
== END 2021-06-27 21:00 | disposition left against medical advice (07) | DRG 133 ==
LOC: ED 23:34 → EDIP 06-26 01:24 → 4WST 06-27 15:42
PROVIDERS: ADMIT Internal Medicine; ATTEND Internal Medicine
PROC: 5A1935Z Respiratory Ventilation, Less than 24 Consecutive Hours (ICD-10-PCS; principal; 2021-06-26)
PROC: 0BH17EZ Insertion of Endotracheal Airway into Trachea, Via Natural or Artificial Opening (ICD-10-PCS; 2021-06-26)
PROC: 0T9B70Z Drainage of Bladder with Drainage Device, Via Natural or Artificial Opening (ICD-10-PCS; 2021-06-26)
DX: J96.01 Acute respiratory failure with hypoxia (principal); G93.41 Metabolic encephalopathy; I50.33 Acute on chronic diastolic (congestive) heart failure; I13.0 Hypertensive heart and chronic kidney disease with heart failure and stage 1 through stage 4 chronic kidney disease, or unspecified chronic kidney disease; E11.22 Type 2 diabetes mellitus with diabetic chronic kidney disease; E11.40 Type 2 diabetes mellitus with diabetic neuropathy, unspecified; E66.01 Morbid (severe) obesity due to excess calories; F15.129 Other stimulant abuse with intoxication, unspecified; G89.29 Other chronic pain; M54.9 Dorsalgia, unspecified; Z53.29 Procedure and treatment not carried out because of patient's decision for other reasons; I16.1 Hypertensive emergency; I25.10 Atherosclerotic heart disease of native coronary artery without angina pectoris; J44.9 Chronic obstructive pulmonary disease, unspecified; N18.2 Chronic kidney disease, stage 2 (mild); Z20.822 Contact with and (suspected) exposure to COVID-19; Z72.0 Tobacco use; Z91.19 Patient's noncompliance with other medical treatment and regimen; I25.2 Old myocardial infarction; Z95.5 Presence of coronary angioplasty implant and graft; Z99.11 Dependence on respirator [ventilator] status; Z88.0 Allergy status to penicillin; Z71.6 Tobacco abuse counseling; Z68.41 Body mass index [BMI] 40.0-44.9, adult
CPT/HCPCS: 31500; 36415; 36600; 70450; 71045; 71275; 80048; 80053; 80307; 81001; 82375; 82803; 82962; 83036; 83050; 83605; 83615; 84145; 84484; 85025; 86140; 87040; 87070; 87184; 87205; 93005; 94002; 96374; 96375; J0456; J0696; J1650; J2185; J2704; Q9967; U0005; J1815; J7050; U0003